=== PATIENT | female | born 1955 | race Caucasian/White ===

== ENCOUNTER 2020-10-26 07:53 | Outpatient (CLI) | payer OTHER, SELFPAY ==
--- NOTE | ~2020-10-26 | XR_ITS ---
XR_[id number] 10/26/2020 08:30 Indication: Cervical radiculopathy. Procedure: 3 views cervical spine Comparison: No prior studies for comparison. Findings: Straightening of cervical lordosis. There is disc narrowing C5-6 and C6-7. There is degener ative anterolisthesis at C3-4. There is retrolisthesis at C5-6. There is multilevel uncinate and face t hypertrophy. Lung apices are normal. Odontoid process within normal limits. No prevertebral soft ti ssue swelling. Impression: 1: Moderate-severe cervical spondylosis. Reviewed, dictated and finalized at location A. INSURANCE AGENT Impression: 1: Moderate-severe cervical spondylosis.
--- NOTE | ~2020-10-26 | XR_ITS ---
XR knee LT 2V 10/26/2020 08:30 Indication: Osteoarthritis of the knee. Procedure: 2 views right knee Comparison: No prior studies for comparison. Findings: There is osteoarthritis of the lateral and patellofemoral compartments. No fracture or trau matic malalignment. No significant joint effusion. No significant soft tissue abnormality. Impression: 1: Moderate osteoarthritis of the left knee. Reviewed, dictated and finalized at location A. ELING ACCOUNTANT Impression: 1: Moderate osteoarthritis of the left knee.
--- NOTE | ~2020-10-26 | XR_ITS ---
XR knee RT 2V 10/26/2020 08:30 Indication: Osteoarthritis of the knee. Procedure: 2 views right knee Comparison: No prior studies for comparison. Findings: There is moderate osteoarthritis of the patellofemoral and medial compartments. No fracture or traumatic malalignment. Small osteochondroma originating from the proximal fibular diaphysis. No significant joint effusion. There are vascular calcifications. Impression: 1: Moderate osteoarthritis of the right knee. Reviewed, dictated and finalized at location A. LER HELPER Impression: 1: Moderate osteoarthritis of the right knee.
== END 2020-10-26 07:54 | disposition home or self-care (01) ==
PROVIDERS: PCP Physician Assistant; Visit Provider Physician Assistant
DX: M17.0 Bilateral primary osteoarthritis of knee (principal); M43.12 Spondylolisthesis, cervical region; M54.12 Radiculopathy, cervical region
CPT/HCPCS: 72040; 73560

== ENCOUNTER 2021-07-25 10:57 | Emergency (ER) | payer OTHER, SELFPAY ==
[2021-07-25 11:04] VITALS: BP 152/67; PULSE 83; RESP 18; TEMP 36.9; O2SAT 99
--- NOTE | 2021-07-25 11:06 | ED.WOUNDLAC ---
HPI - Wound/Laceration General Chief Complaint: Wound/Laceration Stated Complaint: lac on right eyebrow Time Seen by Provider: 07/25/21 11:06 Source: patient and RN notes reviewed History of Present Illness HPI narrative: Patient 65-year-old female who presents the urgent care with complaints of a laceration to the right eyebrow. 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 Patient denies of any loss of consciousness, dizziness or vision changes. No other acute complaints. Patient states that she put pressure to the area and a bandage. No acute distress noted. Patient read the plan of care. Some parts of this dictation were generated by voice recognition software and may contain typographical and/or grammatical inaccuracies. Related Data Home Medications Medication Instructions Recorded Confirmed cyclobenzaprine 10 mg PO BID 07/25/21 07/25/21 losartan 50 mg PO DAILY 07/25/21 07/25/21 nadolol 40 mg PO DAILY 07/25/21 07/25/21 Allergies Allergy/AdvReac Type Severity Reaction Status Date / Time Penicillins Allergy Unknown Unknown Verified 07/25/21 11:22 Review of Systems Review of Systems: CONSTITUTIONAL: Denies fever, chills, or sweats. EYES: Denies visual changes, redness, or discharge. ENT: Denies rhinorrhea, congestion, sore throat, or otalgia. CARDIOVASCULAR: Denies chest pain, palpitations, or edema. RESPIRATORY: Denies cough or dyspnea. GASTROINTESTINAL: Denies abdominal pain, nausea, vomiting, or diarrhea. GENITOURINARY: Denies dysuria or hematuria. SKIN: Reports of a laceration to the right eyebrow MUSCULOSKELETAL: Denies back pain, joint pain, or myalgia. NEUROLOGIC: Denies headache, numbness, or weakness. All other systems reviewed are negative, except as documented in HPI. PMFSH Comments At the time of my signature, I reviewed and agree with the nursing past medical, surgical, social, and family history. There is no relevant family history pertinent to the patient complaint. Exam Narrative: GENERAL: This is a well-nourished, well-developed patient, in no apparent distress. HEAD: normocephalic, atraumatic. EYES: PERRL. Sclera clear/white. Vision is grossly intact. EARS: External ears normal NOSE: External nose normal with no obvious nasal discharge, nares without redness, no rhinorrhea. THROAT: Mucous membranes moist NECK: Neck supple, CARDIOVASCULAR: Regular rate and rhythm without murmurs, gallops, or rubs. RESPIRATORY: Clear to auscultation. Breath sounds equal bilaterally. No wheezes, rales, or rhonchi. SKIN: 2 cm linear laceration through the right eyebrow. Warm, intact with no suspicious lesions or rash, good texture and turgor. NEURO: awake, alert, and oriented to person, place and time. There were no obvious focal neurologic abnormalities. EXTREMITIES: No clubbing, cyanosis, or edema. Course Vital Signs Vital signs: Vital Signs Temperature 98.4 F 07/25/21 11:04 Pulse Rate 83 07/25/21 11:04 Respiratory Rate 18 07/25/21 11:04 Blood Pressure 152/67 H 07/25/21 11:04 Pulse Oximetry 99 07/25/21 11:04 Temperature 98.4 F 07/25/21 11:04 Pulse Rate 83 07/25/21 11:04 Respiratory Rate 18 07/25/21 11:04 Blood Pressure 152/67 H 07/25/21 11:04 Pulse Oximetry 99 07/25/21 11:04 Reviewed-patient is informed that they may have pre-hypertension or hypertension based on a blood pressure reading in the department. I recommend the patient call the primary care provider listed on their discharge instructions or a physician of their choice this week to arrange follow-up for further evaluation of possible pre-hypertension or hypertension. Procedures Laceration Laceration 1: Site: face (Through the right eyebrow) Side (If applicable): right Size (cm): 2 Description: linear Depth: simple, single layer Local Anesthetic: lidocaine 1% Amount of anesthesia used (mL): 2 Pre-repair: ir
[2021-07-25] MEDS: TETANUS,DIPHTHERIA,AC PERTUSSIS ADULT (0.5 ML) BOOSTRIX IM (11:22)
== END 2021-07-25 11:50 | disposition home or self-care (01) ==
PROVIDERS: Emergency Provider Nurse Practitioner Family; PCP Physician Assistant
DX: S01.111A Laceration without foreign body of right eyelid and periocular area, initial encounter (principal); W18.09XA Striking against other object with subsequent fall, initial encounter; Z23 Encounter for immunization; I10 Essential (primary) hypertension
CPT/HCPCS: 12011; 90471; 90715; 99212; G0463